=== PATIENT | female | born 1965 | race Caucasian/White ===

== ENCOUNTER 2023-07-29 11:39 | Day surgery (SDC) | payer OTHER ==
[2023-07-09 14:53] VITALS: BMI 25.7
== END 2023-07-29 12:45 | disposition home or self-care (01) ==
LOC: MERGE 11:39 → FASU-ENDO 11:39
PROVIDERS: ATTEND Internal Medicine Gastroenterology
PROC: 0DJ08ZZ Inspection of Upper Intestinal Tract, Via Natural or Artificial Opening Endoscopic (ICD-10-PCS; principal; 2023-07-29)
DX: Z53.09 Procedure and treatment not carried out because of other contraindication (principal); R10.13 Epigastric pain

== ENCOUNTER 2023-08-15 15:01 | Inpatient (IN) | payer OTHER ==
[2023-08-15 15:32] VITALS: BMI 27.4
[2023-08-15] MEDS: ALBUTEROL SO4 2.5/IPRATROPIUM 0.5 INH SOL 3 ML VIAL.NEB. NEB SCH (15:33)
[2023-08-15] MEDS ORDERED: ACETAMINOPHEN INJECTION 100 ML IVPB ONE (15:34)
[2023-08-15] MEDS ORDERED: methylPREDNISolone NA SUCC 125 MG/2 ML VIAL ONE (15:35)
[2023-08-15] MEDS: ACETAMINOPHEN 1000 MG/100 ML BAG IVPB ONE (15:43)
[2023-08-15] MEDS: SODIUM CHLORIDE 0.9% 500 ML INFUS.BAG IV ONE ×3 (15:43→21:26)
[2023-08-15] MEDS: methylPREDNISolone NA SUCC 125 MG/2 ML VIAL IVPB ONE (15:43)
[2023-08-15 16:29] LABS: VENOUS BASE EXCESS -2.7 mmol/L (-2-2); VENOUS O2 SATURATION 38.4 % (70-80); VENOUS PCO2 59.1 mmHg (38-52); VENOUS PH 7.258 (7.310-7.410)
[2023-08-15 16:33] LABS: INR 1.04 (0.83-1.09); PROTHROMBIN TIME (PATIENT) 12.1 SEC (9.7-13.0)
[2023-08-15 16:35] LABS: ACTIVATED PTT 45.4 SECONDS (25.2-36.5)
[2023-08-15 16:39] LABS: HEMATOCRIT 51.7 % (32.4-45.2); HEMOGLOBIN 16.4 GM/dL (10.7-15.3); MCH 27.3 pg (25.7-33.7); MCHC 31.8 g/dl (32.0-36.0); MEAN CELL VOLUME 85.8 fl (80-96); RBC 6.02 M/mm3 (3.60-5.2); RDW 14.5 % (11.6-15.6)
[2023-08-15 16:48] LABS: CHLORIDE 95 mmol/L (98-107); SODIUM 134 mmol/L (136-145)
[2023-08-15 16:50] LABS: ALBUMIN 2.2 g/dl (3.4-5.0); ANION GAP 14 mmol/L (4-13); CALCIUM 8.9 mg/dL (8.5-10.1); CO2 26 mmol/L (21-32); GLUCOSE,RANDOM 168 mg/dL (74-106); MAGNESIUM 1.6 mg/dL (1.8-2.4)
[2023-08-15 16:53] LABS: CREATININE 1.6 mg/dL (0.55-1.3); SGPT/ALT 43 U/L (13-61)
[2023-08-15 16:54] LABS: SGOT/AST 70 U/L (15-37)
[2023-08-15 16:55] LABS: BILIRUBIN,TOTAL 1.3 mg/dL (0.2-1); TOT PROT 7.3 g/dl (6.4-8.2)
[2023-08-15 16:56] LABS: ALK PHOS 291 U/L (45-117)
[2023-08-15 17:03] LABS: BLOOD UREA NITROGEN 2.6 mg/dL (7-18)
[2023-08-15 17:03] LABS: LACTIC ACID 6.8 mmol/L (0.4-2.0)
[2023-08-15 17:29] LABS: ANISOCYTOSIS 0; MACROCYTOSIS 0
[2023-08-15 17:31] LABS: WHITE BLOOD COUNT 20.8 K/mm3 (4.0-10.0)
[2023-08-15] MEDS ORDERED: KCL 10 MEQ IVPB 10 MEQ/100 ML INFUS.BAG IVPB ONE ×3 (18:43→21:53)
[2023-08-15] MEDS ORDERED: PIPERACILLIN/TAZOB 4.5 GM 4.5 GM/100 ML BAG IVPB ONE (18:44)
[2023-08-15 18:45] LABS: VENOUS BASE EXCESS -7.7 mmol/L (-2-2); VENOUS O2 SATURATION 52.8 % (70-80); VENOUS PCO2 54.8 mmHg (38-52); VENOUS PH 7.201 (7.310-7.410)
[2023-08-15] MEDS: PIPERACILLIN/TAZOB 4.5 GM 4.5 GM in DEXTROSE 5%-WATER 100 ML IVPB ONE (18:51)
[2023-08-15] MEDS: KCL 10 MEQ IVPB 10 MEQ/100 ML INFUS.BAG IVPB SCH (18:51)
[2023-08-15] MEDS ORDERED: VANCOMYCIN 1 GRAM (PRE-DOCKED) 1,000 MG/250 ML BAG IVPB ONE (19:20)
[2023-08-15] MEDS ORDERED: MAGNESIUM SULFATE IN WATER 2 GM/50 ML IVPB IVPB ONE (19:49)
[2023-08-15] MEDS: MAGNESIUM SULFATE IN WATER 2 GM/50 ML IVPB IVPB ONE (20:00)
[2023-08-15] MEDS: VANCOMYCIN 1,000 MG in DEXTROSE 5%-WATER - 250 ML IVPB ONE (20:14)
[2023-08-15] MEDS ORDERED: ONDANSETRON 4 MG/2 ML VIAL ONE (20:14)
[2023-08-15] MEDS: ONDANSETRON 4 MG/2 ML VIAL IVPUSH ONE (20:16)
[2023-08-15] MEDS ORDERED: ACETAMINOPHEN 1000 MG/100 ML BAG IVPB PRN (22:05)
[2023-08-15] MEDS ORDERED: ALBUTEROL SO4 0.5 % INH SOLN 2.5 MG/0.5 ML VIAL.NEB. NEB PRN (22:17)
[2023-08-15] MEDS ORDERED: HEPARIN NA (PORCINE) 5,000 UNITS/ML 1ML VIAL ONE (22:39)
[2023-08-15] MEDS: LACTATED RINGERS SOLUTION 1,000 ML/1,000 ML INFUS.BAG IV SCH (22:53)
[2023-08-15] MEDS: HEPARIN NA (PORCINE) 5,000 UNITS/ML 1ML VIAL SQ SCH (22:53)
[2023-08-15 23:57] LABS: METHADONE, UR NEGATIVE (NEGATIVE); OPIATES, URI NEGATIVE (NEGATIVE); PHENCYCLIDINE,URINE NEGATIVE (NEGATIVE); URINE BARBITURATES NEGATIVE (NEGATIVE); URINE BENZODIAZEPINES NEGATIVE (NEGATIVE)
[2023-08-15 23:58] LABS: COCAINE, UR NEGATIVE (NEGATIVE)
[2023-08-16] LABS: URINE AMPHETAMINES NEGATIVE (NEGATIVE)
[2023-08-16] MEDS: LACTATED RINGERS SOLUTION 1,000 ML/1,000 ML INFUS.BAG IV STA ×4 (00:25→05:16)
[2023-08-16] MEDS: PIPERACILLIN/TAZOB 2.25 GM 2.25 GM in DEXTROSE 5%-WATER - 50 ML IVPB SCH (02:26)
[2023-08-16 04:45] LABS: LACTIC ACID 8.9 mmol/L (0.4-2.0)
[2023-08-16] MEDS: ALBUTEROL SO4 2.5/IPRATROPIUM 0.5 INH SOL 3 ML VIAL.NEB. NEB SCH (07:15)
[2023-08-16 07:24] LABS: INR 1.88 (0.83-1.09); PROTHROMBIN TIME (PATIENT) 21.7 SEC (9.7-13.0)
[2023-08-16 07:25] LABS: ACTIVATED PTT 23.3 SECONDS (25.2-36.5)
[2023-08-16 07:34] LABS: HEMATOCRIT 36.7 % (32.4-45.2); HEMOGLOBIN 11.8 GM/dL (10.7-15.3); MCH 27.9 pg (25.7-33.7); MCHC 32.3 g/dl (32.0-36.0); MEAN CELL VOLUME 86.5 fl (80-96); MEAN PLT VOLUME 10.5 fl (7.5-11.1); PLATELET COUNT 111 10^3/uL (134-434); RBC 4.24 M/mm3 (3.60-5.2); RDW 14.2 % (11.6-15.6); WHITE BLOOD COUNT 6.1 K/mm3 (4.0-10.0)
[2023-08-16 07:49] LABS: CHLORIDE 108 mmol/L (98-107); POTASSIUM 3.6 mmol/L (3.5-5.1); SODIUM 139 mmol/L (136-145)
[2023-08-16 07:51] LABS: CALCIUM 7.6 mg/dL (8.5-10.1)
[2023-08-16 07:51] LABS: LACTIC ACID 8.2 mmol/L (0.4-2.0)
[2023-08-16 07:52] LABS: ANION GAP 11 mmol/L (4-13); CO2 20 mmol/L (21-32); GLUCOSE,RANDOM 125 mg/dL (74-106); MAGNESIUM 1.3 mg/dL (1.8-2.4)
[2023-08-16 07:55] LABS: CREATININE 0.9 mg/dL (0.55-1.3); PHOSPHOROUS 2.2 mg/dL (2.5-4.9)
[2023-08-16 07:56] LABS: BLOOD UREA NITROGEN 2.3 mg/dL (7-18)
[2023-08-16 08:51] LABS: ANISOCYTOSIS 2+; MACROCYTOSIS 0
[2023-08-16] MEDS: methylPREDNISolone NA SUCC 40 MG/1 ML VIAL IVPUSH SCH (09:35)
[2023-08-16] MEDS: MAGNESIUM SULFATE IN WATER 2 GM/50 ML IVPB IVPB ONE (09:35)
[2023-08-16] MEDS: MUPIROCIN 2% TOPICAL OINTMENT FOR DECOLONIZATION NS SCH (09:35)
[2023-08-16] MEDS: PANTOPRAZOLE SODIUM 40 MG VIAL IVPUSH SCH (09:36)
[2023-08-16] MEDS: PIPERACILLIN/TAZOB 4.5 GM 4.5 GM in DEXTROSE 5%-WATER 100 ML IVPB SCH ×2 (09:37→17:04)
[2023-08-16] MEDS ORDERED: methylPREDNISolone NA SUCC 40 MG/1 ML VIAL IVPUSH SCH (10:00)
[2023-08-16] MEDS: POTASSIUM PHOSPHATE 30 MM in DEXTROSE 5%-WATER - 500 ML IVPB ONE (10:48)
[2023-08-16 12:56] LABS: LACTIC ACID 6.4 mmol/L (0.4-2.0)
[2023-08-16 13:24] LABS: URINE APPEARANCE CLEAR; URINE COLOR YELLOW
[2023-08-16 13:25] LABS: URINE BILIRUBIN NEGATIVE (NEGATIVE); URINE GLUCOSE (UA) NEGATIVE (NEGATIVE); URINE KETONE NEGATIVE (NEGATIVE); URINE LEUK ESTERASE NEGATIVE (NEGATIVE); URINE NITRITE NEGATIVE (NEGATIVE); URINE PROTEIN NEGATIVE (NEGATIVE); URINE RBC 31.8 /uL (0-23.9); URINE UROBILINOGEN 0.2 mg/dL (0.2-1.0)
[2023-08-16 13:26] LABS: EPI CELLS 14.1 /uL (0-25.1); HYALINE CASTS 0.59 /uL (0-3.1); URINE BACTERIA 161.5 /uL (0-1359); URINE WBC 69.7 /uL (0-25.8)
[2023-08-16] MEDS ORDERED: PIPERACILLIN/TAZOB 4.5 GM 4.5 GM in DEXTROSE 5%-WATER 100 ML IVPB SCH (18:00)
[2023-08-16] MEDS: CHLORHEXIDINE GLUCONATE 4% CLEANSER FOR DECOLONIZATION TP SCH (21:43)
[2023-08-17] MEDS: DEXMEDETOMIDINE PREMIX 400 MCG/100 ML BAG IVPB SCH (00:04)
[2023-08-17] MEDS: PIPERACILLIN/TAZOB 2.25 GM 2.25 GM in DEXTROSE 5%-WATER - 50 ML IVPB SCH (05:10)
[2023-08-17 07:29] LABS: POTASSIUM 3.8 mmol/L (3.5-5.1)
[2023-08-17 07:35] LABS: CALCIUM 7.2 mg/dL (8.5-10.1)
[2023-08-17 07:36] LABS: MAGNESIUM 1.9 mg/dL (1.8-2.4)
[2023-08-17 07:39] LABS: CREATININE 0.6 mg/dL (0.55-1.3); PHOSPHOROUS 2.3 mg/dL (2.5-4.9)
[2023-08-17 07:40] LABS: BILIRUBIN,TOTAL 0.7 mg/dL (0.2-1)
[2023-08-17 07:46] LABS: ALBUMIN 1.4 g/dl (3.4-5.0); TOT PROT 4.6 g/dl (6.4-8.2)
[2023-08-17 07:50] LABS: BASO % 0.1 % (0-2.0); HEMATOCRIT 32.9 % (32.4-45.2); HEMOGLOBIN 10.8 GM/dL (10.7-15.3); LYMPH % 7.7 % (8-40); MCH 27.7 pg (25.7-33.7); MCHC 32.8 g/dl (32.0-36.0); MEAN CELL VOLUME 84.4 fl (80-96); MEAN PLT VOLUME 11.1 fl (7.5-11.1); MONO % 4.1 % (3.8-10.2); NEUT % 88.1 % (42.8-82.8); PLATELET COUNT 103 10^3/uL (134-434); RDW 14.5 % (11.6-15.6); WHITE BLOOD COUNT 8.4 K/mm3 (4.0-10.0)
[2023-08-17] MEDS: ADENOSINE 6 MG/2 ML VIAL IVPUSH ONE ×3 (08:15→10:30)
[2023-08-17] MEDS: METOPROLOL TARTRATE 5 MG/5 ML VIAL IVPUSH ONE (09:00)
[2023-08-17] MEDS: ONDANSETRON 4 MG/2 ML VIAL IVPUSH PRN (09:10)
[2023-08-17] MEDS: TRIMETHOBENZAMIDE HCL 200MG/2ML INJ IM ONE (10:30)
[2023-08-17] MEDS: HYDROmorphone HCl 2 MG/ML VIAL IVPUSH ONE (10:30)
[2023-08-17] MEDS: METOPROLOL TARTRATE 5 MG/5 ML VIAL IVPB SCH (12:59)
[2023-08-17] MEDS: TRIMETHOBENZAMIDE HCL 200MG/2ML INJ IM PRN (16:56)
[2023-08-17] MEDS: SODIUM PHOSPHATE - 30 MM in SODIUM CHLORIDE 500 ML IVPB ONE (17:38)
[2023-08-18] MEDS ORDERED: traMADol HCL 50 MG TABLET PO PRN (10:13)
[2023-08-18] MEDS: PANTOPRAZOLE 40 MG TABLET PO SCH (21:01)
[2023-08-18] MEDS: ACETAMINOPHEN 1000 MG/100 ML BAG IVPB PRN (22:16)
[2023-08-19] MEDS: LACTATED RINGERS SOLUTION 1,000 ML/1,000 ML INFUS.BAG IV SCH (05:08)
[2023-08-19] MEDS: ALBUTEROL SO4 2.5/IPRATROPIUM 0.5 INH SOL 3 ML VIAL.NEB. NEB SCH (07:30)
[2023-08-19 08:52] LABS: CHLORIDE 97 mmol/L (98-107); SODIUM 137 mmol/L (136-145)
[2023-08-19 08:57] LABS: CALCIUM 8.1 mg/dL (8.5-10.1)
[2023-08-19 08:58] LABS: CO2 25 mmol/L (21-32); GLUCOSE,RANDOM 56 mg/dL (74-106)
[2023-08-19 09:00] LABS: SGPT/ALT 25 U/L (13-61)
[2023-08-19 09:01] LABS: CREATININE 0.4 mg/dL (0.55-1.3); PHOSPHOROUS 1.3 mg/dL (2.5-4.9); SGOT/AST 39 U/L (15-37)
[2023-08-19 09:02] LABS: BILIRUBIN,TOTAL 0.9 mg/dL (0.2-1); TOT PROT 6.2 g/dl (6.4-8.2)
[2023-08-19 09:16] LABS: ALBUMIN 1.9 g/dl (3.4-5.0); ALK PHOS 265 U/L (45-117); ANION GAP 15 mmol/L (4-13); BLOOD UREA NITROGEN 1.2 mg/dL (7-18); POTASSIUM 2.8 mmol/L (3.5-5.1)
[2023-08-19] MEDS: KCL 10 MEQ IVPB 10 MEQ/100 ML INFUS.BAG IVPB SCH (10:41)
[2023-08-19] MEDS: POLYETHYLENE GLYCOL (HEALTHYLAX) 3350 17 GM PACKET PO SCH (10:43)
[2023-08-19] MEDS: HEPARIN NA (PORCINE) 5,000 UNITS/ML 1ML VIAL SQ SCH (10:43)
[2023-08-19] MEDS: DULoxetine HCL 30 MG CAPSULE.DR PO SCH (10:44)
[2023-08-19] MEDS ORDERED: METOPROLOL TARTRATE 5 MG/5 ML VIAL IVPUSH PRN (12:04)
[2023-08-19] MEDS: POTASSIUM CHLORIDE ORAL LIQUID 20 MEQ/15 ML PO ONE (12:51)
[2023-08-19] MEDS: busPIRone HCL 10 MG TABLET (FP) PO SCH (15:40)
[2023-08-19] MEDS: POTASSIUM PHOSPHATE 30 MM in SODIUM CHLORIDE 500 ML IVPB ONE (15:57)
[2023-08-19] MEDS ORDERED: METOPROLOL TARTRATE 5 MG/5 ML VIAL IVPUSH SCH (16:15)
[2023-08-19] MEDS: METOPROLOL TARTRATE 5 MG/5 ML VIAL IVPUSH SCH (18:07)
[2023-08-19] MEDS: DEXTROSE 50%-WATER 25 GM/50 ML DISP.SYRIN IVPUSH ONE (19:34)
[2023-08-19] MEDS: KCL 10 MEQ IVPB 10 MEQ/100 ML INFUS.BAG IVPB ONE (19:34)
[2023-08-19 21:00] LABS: CHLORIDE 101 mmol/L (98-107); SODIUM 135 mmol/L (136-145)
[2023-08-19 21:01] LABS: CALCIUM 7.5 mg/dL (8.5-10.1); CO2 19 mmol/L (21-32); GLUCOSE,RANDOM 170 mg/dL (74-106); MAGNESIUM 1.3 mg/dL (1.8-2.4)
[2023-08-19 21:02] LABS: BLOOD UREA NITROGEN < 1.0 mg/dL (7-18)
[2023-08-19 21:05] LABS: CREATININE 0.4 mg/dL (0.55-1.3)
[2023-08-19 21:11] LABS: ANION GAP 15 mmol/L (4-13); POTASSIUM 2.9 mmol/L (3.5-5.1)
[2023-08-19] MEDS ORDERED: LORazepam 2 MG TABLET PO SCH (22:00)
[2023-08-19] MEDS ORDERED: LORazepam 0.5 MG TABLET PO SCH (22:22)
[2023-08-19] MEDS: LORazepam 0.5 MG TABLET PO ONE (22:49)
[2023-08-20 07:43] LABS: MAGNESIUM 1.3 mg/dL (1.8-2.4)
[2023-08-20 08:00] LABS: CHLORIDE 102 mmol/L (98-107); POTASSIUM 3.4 mmol/L (3.5-5.1); SODIUM 137 mmol/L (136-145)
[2023-08-20 08:08] LABS: CALCIUM 7.3 mg/dL (8.5-10.1)
[2023-08-20 08:09] LABS: ANION GAP 11 mmol/L (4-13); BLOOD UREA NITROGEN < 1.0 mg/dL (7-18); CO2 24 mmol/L (21-32); GLUCOSE,RANDOM 89 mg/dL (74-106)
[2023-08-20 08:10] LABS: ALBUMIN 1.6 g/dl (3.4-5.0); BLOOD UREA NITROGEN < 1.0 mg/dL (7-18); CALCIUM 7.2 mg/dL (8.5-10.1); CO2 22 mmol/L (21-32)
[2023-08-20 08:11] LABS: GLUCOSE,RANDOM 95 mg/dL (74-106); MAGNESIUM 1.6 mg/dL (1.8-2.4)
[2023-08-20 08:12] LABS: CREATININE 0.4 mg/dL (0.55-1.3)
[2023-08-20 08:13] LABS: PHOSPHOROUS 1.6 mg/dL (2.5-4.9); SGPT/ALT 16 U/L (13-61)
[2023-08-20 08:14] LABS: CREATININE 0.3 mg/dL (0.55-1.3); SGOT/AST 23 U/L (15-37)
[2023-08-20 08:15] LABS: BILIRUBIN,TOTAL 0.9 mg/dL (0.2-1); TOT PROT 5.1 g/dl (6.4-8.2)
[2023-08-20 08:24] LABS: ALK PHOS 198 U/L (45-117); ANION GAP 12 mmol/L (4-13); POTASSIUM 2.5 mmol/L (3.5-5.1)
[2023-08-20 10:28] LABS: CHLORIDE 102 mmol/L (98-107); SODIUM 139 mmol/L (136-145)
[2023-08-20 10:30] LABS: ALBUMIN 1.7 g/dl (3.4-5.0); CALCIUM 7.4 mg/dL (8.5-10.1)
[2023-08-20 10:31] LABS: BLOOD UREA NITROGEN < 1.0 mg/dL (7-18); CO2 22 mmol/L (21-32); GLUCOSE,RANDOM 97 mg/dL (74-106); MAGNESIUM 1.6 mg/dL (1.8-2.4)
[2023-08-20 10:33] LABS: CREATININE 0.4 mg/dL (0.55-1.3)
[2023-08-20] MEDS: LORazepam 0.5 MG TABLET PO SCH (10:33)
[2023-08-20 10:34] LABS: PHOSPHOROUS 1.4 mg/dL (2.5-4.9); SGOT/AST 25 U/L (15-37)
[2023-08-20] MEDS: METOPROLOL TARTRATE 25 MG TABLET (FP) PO SCH (10:34)
[2023-08-20 10:35] LABS: BILIRUBIN,TOTAL 0.9 mg/dL (0.2-1); TOT PROT 5.3 g/dl (6.4-8.2)
[2023-08-20 10:36] LABS: ALK PHOS 210 U/L (45-117)
[2023-08-20 10:40] LABS: SGPT/ALT 17 U/L (13-61)
[2023-08-20 10:45] LABS: ANION GAP 14 mmol/L (4-13); POTASSIUM 2.6 mmol/L (3.5-5.1)
[2023-08-20] MEDS ORDERED: KCL 20 MEQ PREMIX BAG 20 MEQ/100 ML INFUS.BAG IVPB SCH (13:00)
[2023-08-20] MEDS: KCL 10 MEQ IVPB 10 MEQ/100 ML INFUS.BAG IVPB SCH ×2 (13:51)
[2023-08-20] MEDS ORDERED: MAGNESIUM SULF 50% (8.12 MEQ/2 ML-1 GM VIAL) ONE (15:56)
[2023-08-20] MEDS: MAGNESIUM SULF 50% (8.12 MEQ/2 ML-1 GM VIAL) IVPB ONE (15:58)
[2023-08-21 08:34] LABS: BASO % 0.2 % (0-2.0); EOS % 1.2 % (0-4.5); HEMATOCRIT 31.7 % (32.4-45.2); LYMPH % 12.4 % (8-40); MCH 28.2 pg (25.7-33.7); MCHC 34.7 g/dl (32.0-36.0); MEAN CELL VOLUME 81.3 fl (80-96); MEAN PLT VOLUME 9.7 fl (7.5-11.1); MONO % 7.8 % (3.8-10.2); NEUT % 78.4 % (42.8-82.8); PLATELET COUNT 123 10^3/uL (134-434); RDW 14.5 % (11.6-15.6); WHITE BLOOD COUNT 7.9 K/mm3 (4.0-10.0)
[2023-08-21 08:48] LABS: CHLORIDE 100 mmol/L (98-107); SODIUM 136 mmol/L (136-145)
[2023-08-21 09:06] LABS: CALCIUM 7.3 mg/dL (8.5-10.1); CO2 25 mmol/L (21-32)
[2023-08-21 09:08] LABS: ALBUMIN 1.7 g/dl (3.4-5.0); BLOOD UREA NITROGEN < 1.0 mg/dL (7-18); GLUCOSE,RANDOM 84 mg/dL (74-106)
[2023-08-21 09:10] LABS: SGPT/ALT 15 U/L (13-61)
[2023-08-21 09:11] LABS: CREATININE 0.3 mg/dL (0.55-1.3); SGOT/AST 29 U/L (15-37); TOT PROT 5.2 g/dl (6.4-8.2)
[2023-08-21 09:13] LABS: ALK PHOS 189 U/L (45-117); BILIRUBIN,TOTAL 0.8 mg/dL (0.2-1)
[2023-08-21 09:28] LABS: ANION GAP 11 mmol/L (4-13); POTASSIUM 2.5 mmol/L (3.5-5.1)
[2023-08-21] MEDS: KCL 10 MEQ IVPB 10 MEQ/100 ML INFUS.BAG IVPB SCH ×3 (11:34→22:39)
[2023-08-21] MEDS: AMINO ACIDS 4.25%/D5W 1,000 ML IV SCH (17:07)
[2023-08-21] MEDS: ACETAMINOPHEN 1000 MG/100 ML BAG IVPB ONE (18:27)
[2023-08-21 20:50] LABS: CHLORIDE 100 mmol/L (98-107); SODIUM 135 mmol/L (136-145)
[2023-08-21 20:52] LABS: ALBUMIN 1.7 g/dl (3.4-5.0); CALCIUM 7.6 mg/dL (8.5-10.1); CO2 23 mmol/L (21-32); GLUCOSE,RANDOM 92 mg/dL (74-106)
[2023-08-21 20:55] LABS: CREATININE 0.3 mg/dL (0.55-1.3); SGOT/AST 30 U/L (15-37); SGPT/ALT 15 U/L (13-61)
[2023-08-21 20:57] LABS: BILIRUBIN,TOTAL 0.8 mg/dL (0.2-1); TOT PROT 5.2 g/dl (6.4-8.2)
[2023-08-21 20:58] LABS: ALK PHOS 176 U/L (45-117)
[2023-08-21 21:01] LABS: ANION GAP 12 mmol/L (4-13); BLOOD UREA NITROGEN 1.2 mg/dL (7-18); POTASSIUM 2.9 mmol/L (3.5-5.1)
[2023-08-21] MEDS: MIRTAZAPINE 15 MG TABLET (FP) PO SCH (22:40)
[2023-08-22 08:00] LABS: CHLORIDE 100 mmol/L (98-107); SODIUM 136 mmol/L (136-145)
[2023-08-22 08:01] LABS: CALCIUM 7.5 mg/dL (8.5-10.1); CO2 29 mmol/L (21-32)
[2023-08-22 08:02] LABS: GLUCOSE,RANDOM 103 mg/dL (74-106)
[2023-08-22 08:04] LABS: CREATININE 0.3 mg/dL (0.55-1.3)
[2023-08-22 08:05] LABS: ANION GAP 7 mmol/L (4-13); BLOOD UREA NITROGEN 1.4 mg/dL (7-18); POTASSIUM 2.8 mmol/L (3.5-5.1)
[2023-08-22] MEDS: KCL 10 MEQ IVPB 10 MEQ/100 ML INFUS.BAG IVPB SCH (10:44)
[2023-08-22] MEDS: DULoxetine HCL 20 MG CAPSULE.DR PO SCH (10:44)
[2023-08-22] MEDS ORDERED: SODIUM CHLORIDE 1,000 ML IV SCH (14:00)
[2023-08-22] MEDS: POTASSIUM CHLORIDE 40 MEQ in AMINO ACIDS 4.25%/D5W 1,000 ML IV SCH (15:29)
[2023-08-22] MEDS: SUCRALFATE 1 GM/10 ML UNIT DOSE CUPS PO SCH (17:36)
[2023-08-22] MEDS: POTASSIUM CHLORIDE TABS 10 MEQ TABLET.ER (FP) PO SCH (22:02)
[2023-08-23 08:21] LABS: HEMATOCRIT 33.3 % (32.4-45.2); HEMOGLOBIN 11.4 GM/dL (10.7-15.3); MCHC 34.2 g/dl (32.0-36.0); MEAN CELL VOLUME 81.7 fl (80-96); MEAN PLT VOLUME 10.1 fl (7.5-11.1); PLATELET COUNT 148 10^3/uL (134-434); RBC 4.07 M/mm3 (3.60-5.2); RDW 14.7 % (11.6-15.6); WHITE BLOOD COUNT 7.3 K/mm3 (4.0-10.0)
[2023-08-23 08:29] LABS: CHLORIDE 98 mmol/L (98-107); POTASSIUM 3.3 mmol/L (3.5-5.1); SODIUM 139 mmol/L (136-145)
[2023-08-23 08:40] LABS: CALCIUM 7.7 mg/dL (8.5-10.1)
[2023-08-23 08:42] LABS: ANION GAP 7 mmol/L (4-13); CO2 33 mmol/L (21-32); GLUCOSE,RANDOM 110 mg/dL (74-106); MAGNESIUM 1.5 mg/dL (1.8-2.4)
[2023-08-23 08:45] LABS: CREATININE 0.3 mg/dL (0.55-1.3)
[2023-08-23 08:46] LABS: BLOOD UREA NITROGEN 2.1 mg/dL (7-18)
[2023-08-23] MEDS: MAGNESIUM SULF 50% (8.12 MEQ/2 ML-1 GM VIAL) IVPB ONE (12:32)
[2023-08-24] MEDS: ACETAMINOPHEN 1000 MG/100 ML BAG IVPB ONE (05:48)
[2023-08-24] MEDS: METOCLOPRAMIDE HCL INJECTION 10 MG/2 ML VIAL IVPUSH PRN (10:31)
[2023-08-24 14:40] VITALS: BP 131/78; PULSE 99; RESP 22; TEMP 98.4
[2023-08-24] MEDS: ALBUTEROL SO4 0.5 % INH SOLN 2.5 MG/0.5 ML VIAL.NEB. NEB PRN (15:48)
== END 2023-08-24 18:36 | DRG 872 ==
LOC: JER 15:01 → JERBED 21:40 → JICU 08-16 00:24 → J4W 08-18 21:47
PROVIDERS: ADMIT Internal Medicine Pulmonary Disease; ATTEND Family Medicine
PROC: 05HF33Z Insertion of Infusion Device into Left Cephalic Vein, Percutaneous Approach (ICD-10-PCS; principal; 2023-08-16)
PROC: B54NZZA Ultrasonography of Left Upper Extremity Veins, Guidance (ICD-10-PCS; 2023-08-16)
DX: A41.9 Sepsis, unspecified organism (principal); N17.9 Acute kidney failure, unspecified; E87.20 Acidosis, unspecified; E46 Unspecified protein-calorie malnutrition; J98.11 Atelectasis; I47.10 Supraventricular tachycardia, unspecified; K56.609 Unspecified intestinal obstruction, unspecified as to partial versus complete obstruction; K50.90 Crohn's disease, unspecified, without complications; J44.9 Chronic obstructive pulmonary disease, unspecified; F14.10 Cocaine abuse, uncomplicated; D69.6 Thrombocytopenia, unspecified; F41.9 Anxiety disorder, unspecified; F32.A Depression, unspecified; R13.10 Dysphagia, unspecified; E87.6 Hypokalemia; E83.42 Hypomagnesemia; Z68.27 Body mass index [BMI] 27.0-27.9, adult
CPT/HCPCS: 0241U-QW; 36415; 71045-TC-FY; 74018-TC-FY; 74019-TC-FY; 74176-TC; 74177-TC; 80048; 80053; 80307; 81003; 82436; 82570; 82803; 82962; 83036; 83605; 83690; 83735; 83880; 84100; 84133; 84156; 84300; 84439; 84443; 84484; 85025; 85027; 85610; 85730; 86850; 86900; 86901; 87040; 87086; 93005; 93010; 93306-TC; 94010; 94640; 97116-GP; 97162-GP; 99291; J0131; J1644; Q9967

== ENCOUNTER 2023-08-27 11:32 | Inpatient (IN) | payer OTHER ==
[2023-08-27 13:01] LABS: HEMATOCRIT 35.9 % (32.4-45.2); MCH 27.2 pg (25.7-33.7); MCHC 33.4 g/dl (32.0-36.0); MEAN CELL VOLUME 81.6 fl (80-96); MEAN PLT VOLUME 9.2 fl (7.5-11.1); PLATELET COUNT 408 10^3/uL (134-434); RDW 15.9 % (11.6-15.6); WHITE BLOOD COUNT 25.2 K/mm3 (4.0-10.0)
[2023-08-27 13:08] LABS: INR 1.46 (0.83-1.09); PROTHROMBIN TIME (PATIENT) 16.9 SEC (9.7-13.0)
[2023-08-27 13:11] LABS: ACTIVATED PTT 27.2 SECONDS (25.2-36.5)
[2023-08-27 13:27] LABS: ANISOCYTOSIS 0; MACROCYTOSIS 0; POTASSIUM 3.6 mmol/L (3.5-5.1)
[2023-08-27 13:29] LABS: CALCIUM 8.1 mg/dL (8.5-10.1)
[2023-08-27 13:30] LABS: ALBUMIN 1.6 g/dl (3.4-5.0); BLOOD UREA NITROGEN 5.6 mg/dL (7-18); MAGNESIUM 1.7 mg/dL (1.8-2.4)
[2023-08-27 13:33] LABS: CREATININE 0.4 mg/dL (0.55-1.3)
[2023-08-27 13:35] LABS: BILIRUBIN,TOTAL 1.5 mg/dL (0.2-1); TOT PROT 6.5 g/dl (6.4-8.2)
[2023-08-27] MEDS ORDERED: PIPERACILLIN/TAZOB 4.5 GM 4.5 GM/100 ML BAG IVPB ONE (18:28)
[2023-08-27] MEDS: PIPERACILLIN/TAZOB 4.5 GM 4.5 GM in DEXTROSE 5%-WATER 100 ML IVPB ONE ×2 (18:42→20:06)
[2023-08-27 18:52] LABS: URINE APPEARANCE CLEAR; URINE BILIRUBIN SMALL (NEGATIVE); URINE COLOR ORANGE; URINE GLUCOSE (UA) NEGATIVE (NEGATIVE)
[2023-08-27 18:53] LABS: PH,URINE 6.5 (5.0-8.0); URINE KETONE 15 mg/dl (NEGATIVE); URINE LEUK ESTERASE TRACE (NEGATIVE); URINE NITRITE POSITIVE (NEGATIVE); URINE PROTEIN 30 (NEGATIVE)
[2023-08-27 18:54] LABS: EPI CELLS 13.6 /uL (0-25.1); HYALINE CASTS 1.57 /uL (0-3.1); URINE BACTERIA 2.9 /uL (0-1359); URINE RBC 69.8 /uL (0-23.9); URINE WBC 27.6 /uL (0-25.8)
[2023-08-27] MEDS: VANCOMYCIN 1,000 MG in DEXTROSE 5%-WATER - 250 ML IVPB ONE ×2 (19:09→22:14)
[2023-08-27] MEDS ORDERED: ONDANSETRON 4 MG/2 ML VIAL ONE (20:31)
[2023-08-27] MEDS ORDERED: VANCOMYCIN 1 GRAM (PRE-DOCKED) 1,000 MG/250 ML BAG IVPB ONE (22:06)
[2023-08-28] MEDS ORDERED: ACETAMINOPHEN 325 MG TABLET (FP) ONE ×2 (00:20→13:41)
[2023-08-28] MEDS: ACETAMINOPHEN 325 MG TABLET (FP) PO PRN (00:22)
[2023-08-28] MEDS ORDERED: SUCRALFATE 1 GM TABLET (FP) ONE (07:06)
[2023-08-28] MEDS ORDERED: PIPERACILLIN/TAZOB 4.5 GM 4.5 GM/100 ML BAG IVPB ONE (07:07)
[2023-08-28] MEDS: PIPERACILLIN/TAZOB 4.5 GM 4.5 GM in DEXTROSE 5%-WATER 100 ML IVPB ONE (07:16)
[2023-08-28] MEDS: ALBUTEROL SO4 2.5/IPRATROPIUM 0.5 INH SOL 3 ML VIAL.NEB. NEB SCH (08:00)
[2023-08-28 08:01] LABS: HEMATOCRIT 32.6 % (32.4-45.2); HEMOGLOBIN 10.7 GM/dL (10.7-15.3); MCH 27.1 pg (25.7-33.7); MCHC 32.8 g/dl (32.0-36.0); MEAN CELL VOLUME 82.7 fl (80-96); PLATELET COUNT 357 10^3/uL (134-434); RBC 3.94 M/mm3 (3.60-5.2); RDW 16.2 % (11.6-15.6); WHITE BLOOD COUNT 19.2 K/mm3 (4.0-10.0)
[2023-08-28 08:20] LABS: POTASSIUM 3.5 mmol/L (3.5-5.1)
[2023-08-28 08:23] LABS: ALBUMIN 1.4 g/dl (3.4-5.0); BLOOD UREA NITROGEN 4.7 mg/dL (7-18); MAGNESIUM 1.5 mg/dL (1.8-2.4)
[2023-08-28 08:26] LABS: CREATININE 0.4 mg/dL (0.55-1.3); PHOSPHOROUS 2.2 mg/dL (2.5-4.9)
[2023-08-28 08:27] LABS: BILIRUBIN,TOTAL 1.7 mg/dL (0.2-1); TOT PROT 5.9 g/dl (6.4-8.2)
[2023-08-28 08:42] LABS: ANISOCYTOSIS 0; MACROCYTOSIS 0
[2023-08-28] MEDS ORDERED: LORazepam 0.5 MG TABLET ONE (09:46)
[2023-08-28] MEDS ORDERED: MAGNESIUM SULFATE IN WATER 2 GM/50 ML IVPB IVPB ONE (09:48)
[2023-08-28] MEDS ORDERED: DULoxetine HCL 30 MG CAPSULE.DR PO ONE (09:51)
[2023-08-28] MEDS ORDERED: PANTOPRAZOLE 40 MG TABLET PO ONE (09:51)
[2023-08-28] MEDS ORDERED: METOPROLOL TARTRATE 25 MG TABLET (FP) ONE ×2 (09:51→10:10)
[2023-08-28] MEDS ORDERED: VANCOMYCIN 1 GRAM (PRE-DOCKED) 1,000 MG/250 ML BAG IVPB ONE (09:51)
[2023-08-28] MEDS: VANCOMYCIN/WATER FOR INJ (PEG) 1,000 MG/200 ML BAG IVPB SCH (09:55)
[2023-08-28] MEDS: MAGNESIUM 2GM/50ML STERILE WATER IVPB IVPB ONE (09:56)
[2023-08-28] MEDS: PANTOPRAZOLE 40 MG TABLET PO SCH (09:56)
[2023-08-28] MEDS: METOPROLOL TARTRATE 25 MG TABLET (FP) PO SCH (09:56)
[2023-08-28] MEDS: busPIRone HCL 10 MG TABLET (FP) PO SCH (09:56)
[2023-08-28] MEDS: LORazepam 0.5 MG TABLET PO SCH (09:56)
[2023-08-28] MEDS: DULoxetine HCL 30 MG CAPSULE.DR PO SCH (09:56)
[2023-08-28] MEDS: SUCRALFATE 1 GM/10 ML UNIT DOSE CUPS PO SCH (09:56)
[2023-08-28] MEDS ORDERED: ASCORBIC ACID 500 MG TABLET (FP) ONE (09:57)
[2023-08-28] MEDS ORDERED: GABAPENTIN 300 MG CAPSULE ONE (09:57)
[2023-08-28] MEDS: POLYETHYLENE GLYCOL (HEALTHYLAX) 3350 17 GM PACKET PO SCH (09:58)
[2023-08-28] MEDS: ASCORBIC ACID 250 MG TABLET (FP) PO SCH (09:58)
[2023-08-28] MEDS ORDERED: ONDANSETRON *ODT* 4 MG TABLET ONE (10:10)
[2023-08-28] MEDS: ONDANSETRON *ODT* 4 MG TABLET GT PRN (10:14)
[2023-08-28] MEDS: GABAPENTIN 300 MG CAPSULE PO SCH (13:44)
[2023-08-28 15:40] LABS: BF WBC & OTHER NUCLEATED CELLS 1921 /mm3
[2023-08-28] MEDS: PIPERACILLIN/TAZOB 4.5 GM 4.5 GM in DEXTROSE 5%-WATER 100 ML IVPB SCH (15:45)
[2023-08-28 15:57] LABS: BODY FLUID MACROPHAGES 14 %
[2023-08-28] MEDS: MIRTAZAPINE 15 MG TABLET (FP) PO SCH (21:10)
[2023-08-28] MEDS: MELATONIN 5 MG TABLETS PO SCH (21:11)
[2023-08-29] MEDS: PIPERACILLIN/TAZOB 4.5 GM 4.5 GM in DEXTROSE 5%-WATER 100 ML IVPB SCH (03:00)
[2023-08-29] MEDS: VANCOMYCIN/WATER FOR INJ (PEG) 1,000 MG/200 ML BAG IVPB SCH (14:42)
[2023-08-30 11:34] LABS: BASO % 0.6 % (0-2.0); EOS % 0.8 % (0-4.5); HEMATOCRIT 28.5 % (32.4-45.2); HEMOGLOBIN 9.9 GM/dL (10.7-15.3); LYMPH % 10.9 % (8-40); MCH 28.3 pg (25.7-33.7); MCHC 34.6 g/dl (32.0-36.0); MEAN CELL VOLUME 81.8 fl (80-96); MEAN PLT VOLUME 9.2 fl (7.5-11.1); MONO % 9.2 % (3.8-10.2); NEUT % 78.5 % (42.8-82.8); PLATELET COUNT 312 10^3/uL (134-434); RBC 3.49 M/mm3 (3.60-5.2)
[2023-08-30 11:56] LABS: CHLORIDE 102 mmol/L (98-107); SODIUM 138 mmol/L (136-145)
[2023-08-30 11:59] LABS: ALBUMIN 1.4 g/dl (3.4-5.0); BLOOD UREA NITROGEN 4.2 mg/dL (7-18); CALCIUM 7.8 mg/dL (8.5-10.1); CO2 28 mmol/L (21-32); GLUCOSE,RANDOM 87 mg/dL (74-106)
[2023-08-30 12:02] LABS: CREATININE 0.8 mg/dL (0.55-1.3); SGOT/AST 41 U/L (15-37); SGPT/ALT 12 U/L (13-61)
[2023-08-30 12:04] LABS: BILIRUBIN,TOTAL 1.6 mg/dL (0.2-1); TOT PROT 5.8 g/dl (6.4-8.2)
[2023-08-30 12:05] LABS: ALK PHOS 198 U/L (45-117)
[2023-08-30 12:08] LABS: ANION GAP 8 mmol/L (4-13); POTASSIUM 2.8 mmol/L (3.5-5.1)
[2023-08-30] MEDS: POTASSIUM CHLORIDE ORAL LIQUID 20 MEQ/15 ML PO ONE (14:15)
[2023-08-30] MEDS: KCL 10 MEQ IVPB 10 MEQ/100 ML INFUS.BAG IVPB SCH ×2 (14:15→20:56)
[2023-08-31 12:42] LABS: BASO % 0.7 % (0-2.0); EOS % 1.4 % (0-4.5); HEMATOCRIT 27.1 % (32.4-45.2); HEMOGLOBIN 9.2 GM/dL (10.7-15.3); LYMPH % 17.8 % (8-40); MCH 27.9 pg (25.7-33.7); MONO % 10.5 % (3.8-10.2); NEUT % 69.6 % (42.8-82.8); PLATELET COUNT 309 10^3/uL (134-434); RDW 16.6 % (11.6-15.6); WHITE BLOOD COUNT 7.6 K/mm3 (4.0-10.0)
[2023-08-31 13:02] LABS: CHLORIDE 102 mmol/L (98-107); POTASSIUM 3.2 mmol/L (3.5-5.1); SODIUM 139 mmol/L (136-145)
[2023-08-31 13:03] LABS: CALCIUM 8.4 mg/dL (8.5-10.1)
[2023-08-31 13:04] LABS: GLUCOSE,RANDOM 97 mg/dL (74-106); MAGNESIUM 1.5 mg/dL (1.8-2.4)
[2023-08-31 13:06] LABS: ANION GAP 7 mmol/L (4-13); CO2 29 mmol/L (21-32)
[2023-08-31 13:07] LABS: CREATININE 0.7 mg/dL (0.55-1.3)
[2023-08-31 13:08] LABS: BLOOD UREA NITROGEN 1.8 mg/dL (7-18)
[2023-08-31] MEDS: MAGNESIUM 2GM/50ML STERILE WATER IVPB IVPB ONE (14:24)
[2023-08-31] MEDS: POTASSIUM CHLORIDE ORAL LIQUID 20 MEQ/15 ML PO ONE (14:24)
[2023-08-31 15:11] LABS: BODY FLUID ALBUMIN 1.6 g/dL (Not Estab.)
[2023-08-31 23:47] VITALS: BMI 22.1
[2023-09-01] MEDS: DOCUSATE SODIUM 100 MG CAPSULE (FP) PO PRN (09:06)
[2023-09-01] MEDS: MULTIVITAMINS (DAILY MVI) TABLET (FP) PO SCH (09:10)
[2023-09-01] MEDS: ASCORBIC ACID 250 MG TABLET (FP) PO SCH (10:02)
[2023-09-02 09:52] LABS: BASO % 0.5 % (0-2.0); EOS % 2.7 % (0-4.5); HEMATOCRIT 28.5 % (32.4-45.2); HEMOGLOBIN 9.6 GM/dL (10.7-15.3); MCH 28.3 pg (25.7-33.7); MCHC 33.7 g/dl (32.0-36.0); MEAN PLT VOLUME 9.5 fl (7.5-11.1); MONO % 7.7 % (3.8-10.2); NEUT % 73.1 % (42.8-82.8); PLATELET COUNT 371 10^3/uL (134-434); RBC 3.39 M/mm3 (3.60-5.2); RDW 17.3 % (11.6-15.6); WHITE BLOOD COUNT 8.5 K/mm3 (4.0-10.0)
[2023-09-02 10:18] LABS: ALBUMIN 1.4 g/dl (3.4-5.0); ANION GAP 8 mmol/L (4-13); CALCIUM 8.1 mg/dL (8.5-10.1); CHLORIDE 102 mmol/L (98-107); CO2 31 mmol/L (21-32); GLUCOSE,RANDOM 108 mg/dL (74-106); POTASSIUM 3.4 mmol/L (3.5-5.1); SODIUM 141 mmol/L (136-145)
[2023-09-02 10:21] LABS: CREATININE 0.7 mg/dL (0.55-1.3); MAGNESIUM 1.6 mg/dL (1.8-2.4); SGOT/AST 51 U/L (15-37); SGPT/ALT 17 U/L (13-61)
[2023-09-02 10:22] LABS: BILIRUBIN,TOTAL 0.8 mg/dL (0.2-1)
[2023-09-02 10:23] LABS: TOT PROT 6.1 g/dl (6.4-8.2)
[2023-09-02 10:29] LABS: ALK PHOS 242 U/L (45-117); BLOOD UREA NITROGEN 1.7 mg/dL (7-18)
[2023-09-02] MEDS: MAGNESIUM SULF 50% (8.12 MEQ/2 ML-1 GM VIAL) IVPB ONE (14:33)
[2023-09-02] MEDS: POTASSIUM CHLORIDE ORAL LIQUID 20 MEQ/15 ML PO ONE (14:35)
[2023-09-03] MEDS: LIDOCAINE HCL 1% PRESERVATIVE FREE - 30ML VIAL NR ONE (11:39)
[2023-09-04 09:57] LABS: HEMATOCRIT 30.6 % (32.4-45.2); MCH 27.8 pg (25.7-33.7); MCHC 32.8 g/dl (32.0-36.0); MEAN CELL VOLUME 84.6 fl (80-96); MEAN PLT VOLUME 9.2 fl (7.5-11.1); PLATELET COUNT 430 10^3/uL (134-434); RBC 3.62 M/mm3 (3.60-5.2); RDW 18.1 % (11.6-15.6); WHITE BLOOD COUNT 8.9 K/mm3 (4.0-10.0)
[2023-09-04 10:16] LABS: CHLORIDE 102 mmol/L (98-107); SODIUM 140 mmol/L (136-145)
[2023-09-04 10:20] LABS: CALCIUM 8.2 mg/dL (8.5-10.1)
[2023-09-04 10:21] LABS: ALBUMIN 1.3 g/dl (3.4-5.0); CO2 31 mmol/L (21-32); MAGNESIUM 1.4 mg/dL (1.8-2.4)
[2023-09-04 10:24] LABS: CREATININE 0.5 mg/dL (0.55-1.3); SGOT/AST 213 U/L (15-37); SGPT/ALT 50 U/L (13-61)
[2023-09-04 10:26] LABS: TOT PROT 5.8 g/dl (6.4-8.2)
[2023-09-04] MEDS: LIDOCAINE HCL 1%, 10 MG/ML (20ML VIAL) NR ONE (10:30)
[2023-09-04 10:32] LABS: ALK PHOS 282 U/L (45-117); ANION GAP 7 mmol/L (4-13); GLUCOSE,RANDOM 90 mg/dL (74-106); POTASSIUM 2.9 mmol/L (3.5-5.1)
[2023-09-04] MEDS: ALBUTEROL SO4 2.5/IPRATROPIUM 0.5 INH SOL 3 ML VIAL.NEB. NEB SCH (12:05)
[2023-09-04] MEDS: ONDANSETRON 4 MG/2 ML VIAL IVPUSH PRN (14:50)
[2023-09-04] MEDS: MAGNESIUM SULFATE IN WATER 2 GM/50 ML IVPB IVPB ONE ×2 (17:50→18:14)
[2023-09-04] MEDS: POTASSIUM CHLORIDE TABS 20 MEQ TABLET.ER (FP) PO SCH (18:14)
[2023-09-04] MEDS: KCL 10 MEQ IVPB 10 MEQ/100 ML INFUS.BAG IVPB SCH (19:26)
[2023-09-06 08:49] LABS: BASO % 0.5 % (0-2.0); EOS % 1.5 % (0-4.5); HEMATOCRIT 30.5 % (32.4-45.2); HEMOGLOBIN 10.2 GM/dL (10.7-15.3); LYMPH % 12.5 % (8-40); MCHC 33.3 g/dl (32.0-36.0); MEAN PLT VOLUME 9.6 fl (7.5-11.1); MONO % 7.9 % (3.8-10.2); NEUT % 77.6 % (42.8-82.8); PLATELET COUNT 493 10^3/uL (134-434); RBC 3.63 M/mm3 (3.60-5.2); RDW 18.4 % (11.6-15.6); WHITE BLOOD COUNT 14.2 K/mm3 (4.0-10.0)
[2023-09-06 09:01] LABS: CHLORIDE 98 mmol/L (98-107); SODIUM 136 mmol/L (136-145)
[2023-09-06 09:03] LABS: ALBUMIN 1.2 g/dl (3.4-5.0); CALCIUM 7.9 mg/dL (8.5-10.1)
[2023-09-06 09:04] LABS: CO2 31 mmol/L (21-32); GLUCOSE,RANDOM 91 mg/dL (74-106)
[2023-09-06 09:07] LABS: SGOT/AST 194 U/L (15-37); SGPT/ALT 50 U/L (13-61)
[2023-09-06 09:08] LABS: CREATININE 0.5 mg/dL (0.55-1.3); TOT PROT 5.7 g/dl (6.4-8.2)
[2023-09-06 09:10] LABS: BILIRUBIN,TOTAL 1.5 mg/dL (0.2-1)
[2023-09-06 09:11] LABS: ALK PHOS 409 U/L (45-117); ANION GAP 8 mmol/L (4-13); BLOOD UREA NITROGEN 1.6 mg/dL (7-18); POTASSIUM 2.9 mmol/L (3.5-5.1)
[2023-09-06] MEDS: KCL 10 MEQ IVPB 10 MEQ/100 ML INFUS.BAG IVPB SCH (11:13)
[2023-09-06] MEDS ORDERED: ALBUTEROL SO4 2.5/IPRATROPIUM 0.5 INH SOL 3 ML VIAL.NEB. NEB PRN (14:15)
[2023-09-07 09:20] LABS: BASO % 1.5 % (0-2.0); EOS % 2.5 % (0-4.5); HEMATOCRIT 33.5 % (32.4-45.2); HEMOGLOBIN 11.1 GM/dL (10.7-15.3); LYMPH % 18.1 % (8-40); MCH 28.4 pg (25.7-33.7); MEAN CELL VOLUME 86.1 fl (80-96); MEAN PLT VOLUME 9.5 fl (7.5-11.1); MONO % 6.9 % (3.8-10.2); PLATELET COUNT 397 10^3/uL (134-434); RBC 3.89 M/mm3 (3.60-5.2); RDW 19.8 % (11.6-15.6); WHITE BLOOD COUNT 11.4 K/mm3 (4.0-10.0)
[2023-09-07 09:43] LABS: CHLORIDE 103 mmol/L (98-107); SODIUM 139 mmol/L (136-145)
[2023-09-07 09:47] LABS: CALCIUM 7.4 mg/dL (8.5-10.1)
[2023-09-07 09:48] LABS: ALBUMIN 1.2 g/dl (3.4-5.0); ANION GAP 8 mmol/L (4-13); BLOOD UREA NITROGEN < 1.0 mg/dL (7-18); CO2 28 mmol/L (21-32); GLUCOSE,RANDOM 90 mg/dL (74-106)
[2023-09-07 09:51] LABS: CREATININE 0.6 mg/dL (0.55-1.3); SGOT/AST 126 U/L (15-37); SGPT/ALT 42 U/L (13-61)
[2023-09-07 09:53] LABS: BILIRUBIN,TOTAL 1.2 mg/dL (0.2-1); TOT PROT 5.6 g/dl (6.4-8.2)
[2023-09-07 09:54] LABS: ALK PHOS 391 U/L (45-117)
[2023-09-07] MEDS: KCL 10 MEQ IVPB 10 MEQ/100 ML INFUS.BAG IVPB SCH (11:27)
[2023-09-07] MEDS: POTASSIUM CHLORIDE ORAL LIQUID 20 MEQ/15 ML PO ONE (13:38)
[2023-09-08 10:38] LABS: CHLORIDE 105 mmol/L (98-107); POTASSIUM 3.8 mmol/L (3.5-5.1); SODIUM 140 mmol/L (136-145)
[2023-09-08 10:41] LABS: CALCIUM 8.1 mg/dL (8.5-10.1)
[2023-09-08 10:42] LABS: ALBUMIN 1.1 g/dl (3.4-5.0); ANION GAP 6 mmol/L (4-13); CO2 28 mmol/L (21-32); GLUCOSE,RANDOM 90 mg/dL (74-106); MAGNESIUM 1.6 mg/dL (1.8-2.4)
[2023-09-08 10:45] LABS: CREATININE 0.5 mg/dL (0.55-1.3); SGOT/AST 65 U/L (15-37); SGPT/ALT 33 U/L (13-61)
[2023-09-08 10:46] LABS: BILIRUBIN,TOTAL 0.9 mg/dL (0.2-1)
[2023-09-08 10:47] LABS: TOT PROT 5.4 g/dl (6.4-8.2)
[2023-09-08 10:48] LABS: ALK PHOS 381 U/L (45-117)
[2023-09-08 11:07] LABS: BLOOD UREA NITROGEN 1.7 mg/dL (7-18)
[2023-09-08] MEDS: PIPERACILLIN/TAZOB 4.5 GM 4.5 GM in DEXTROSE 5%-WATER 100 ML IVPB SCH (18:11)
[2023-09-09] MEDS: LACTOBACILLUS ACIDOPHILUS 1 TABLET PO SCH (12:15)
[2023-09-10 05:16] VITALS: PULSE 82
[2023-09-10 11:21] VITALS: BP 111/63; RESP 20; TEMP 97.7
== END 2023-09-10 12:50 | DRG 871 ==
LOC: JER 11:32 → JERBED 18:12 → J6S 08-28 14:52
PROVIDERS: ADMIT Internal Medicine; ATTEND Internal Medicine
PROC: 0W9B3ZZ Drainage of Left Pleural Cavity, Percutaneous Approach (ICD-10-PCS; principal; 2023-08-28)
PROC: 05HY33Z Insertion of Infusion Device into Upper Vein, Percutaneous Approach (ICD-10-PCS; 2023-09-10)
DX: A41.9 Sepsis, unspecified organism (principal); E43 Unspecified severe protein-calorie malnutrition; J18.9 Pneumonia, unspecified organism; J86.9 Pyothorax without fistula; J44.0 Chronic obstructive pulmonary disease with (acute) lower respiratory infection; J90 Pleural effusion, not elsewhere classified; K50.90 Crohn's disease, unspecified, without complications; R64 Cachexia; E83.42 Hypomagnesemia; J45.909 Unspecified asthma, uncomplicated; K21.9 Gastro-esophageal reflux disease without esophagitis; I10 Essential (primary) hypertension; E87.6 Hypokalemia; Z68.22 Body mass index [BMI] 22.0-22.9, adult
CPT/HCPCS: 0241U-QW; 32552; 32557; 36415; 36569; 71045-TC-FY; 71250-TC; 71260-TC; 74177-TC; 76705-TC; 76942; 80048; 80053; 81003; 82042; 82150; 82465; 82945; 83615; 83735; 83986; 84100; 84157; 84478; 84484; 85025; 85027; 85610; 85730; 87040; 87070; 87075; 87081; 87086; 87102; 87116; 87205; 87206; 87210; 88108; 88305-TC; 93005; 93010; 94640; 99285-25; J2997; Q0162; Q9967

== ENCOUNTER 2023-10-04 01:02 | Inpatient (IN) | payer OTHER ==
[2023-10-04] MEDS ORDERED: MAGNESIUM SULFATE IN WATER 2 GM/50 ML IVPB IVPB ONE (01:21)
[2023-10-04] MEDS ORDERED: DEXAMETHASONE SOD PHOSPHATE 10 MG/1 ML VIAL ONE (01:21)
[2023-10-04] MEDS ORDERED: TERBUTALINE SULFATE 1 MG/1 ML VIAL SQ ONE (01:21)
[2023-10-04] MEDS: TERBUTALINE SULFATE 1 MG/1 ML VIAL SQ ONE (01:25)
[2023-10-04 01:41] LABS: VENOUS BASE EXCESS -0.2 mmol/L (-2-2); VENOUS O2 SATURATION 51.6 % (70-80); VENOUS PCO2 45.9 mmHg (38-52); VENOUS PH 7.363 (7.310-7.410)
[2023-10-04 01:42] LABS: HEMATOCRIT 34.4 % (32.4-45.2); HEMOGLOBIN 11.2 GM/dL (10.7-15.3); MCH 29.1 pg (25.7-33.7); MCHC 32.5 g/dl (32.0-36.0); MEAN CELL VOLUME 89.6 fl (80-96); MEAN PLT VOLUME 10.9 fl (7.5-11.1); PLATELET COUNT 232 10^3/uL (134-434); RBC 3.85 M/mm3 (3.60-5.2); RDW 16.8 % (11.6-15.6); WHITE BLOOD COUNT 22.8 K/mm3 (4.0-10.0)
[2023-10-04] MEDS: DEXAMETHASONE SOD PHOSPHATE 10 MG/1 ML VIAL IVPUSH ONE (01:50)
[2023-10-04 01:51] LABS: INR 1.66 (0.83-1.09); PROTHROMBIN TIME (PATIENT) 19.2 SEC (9.7-13.0)
[2023-10-04] MEDS: MAGNESIUM SULF 50% (8.12 MEQ/2 ML-1 GM VIAL) IVPB ONE ×3 (01:51→03:52)
[2023-10-04] MEDS ORDERED: ONDANSETRON 4 MG/2 ML VIAL ONE (01:52)
[2023-10-04] MEDS ORDERED: ASPIRIN 81 MG CHEWABLE TABLETS ONE (01:52)
[2023-10-04 01:54] LABS: ACTIVATED PTT 31.5 SECONDS (25.2-36.5)
[2023-10-04 01:55] LABS: CHLORIDE 102 mmol/L (98-107); POTASSIUM 3.6 mmol/L (3.5-5.1); SODIUM 138 mmol/L (136-145)
[2023-10-04 01:57] LABS: ALBUMIN 1.2 g/dl (3.4-5.0); ANION GAP 8 mmol/L (4-13); CALCIUM 7.3 mg/dL (8.5-10.1); CO2 28 mmol/L (21-32); GLUCOSE,RANDOM 103 mg/dL (74-106); MAGNESIUM 1.1 mg/dL (1.8-2.4)
[2023-10-04 02:01] LABS: SGOT/AST 92 U/L (15-37); SGPT/ALT 28 U/L (13-61)
[2023-10-04 02:02] LABS: BILIRUBIN,TOTAL 2.8 mg/dL (0.2-1); CREATININE 0.6 mg/dL (0.55-1.3)
[2023-10-04 02:03] LABS: ALK PHOS 446 U/L (45-117)
[2023-10-04] MEDS: ONDANSETRON 4 MG/2 ML VIAL IVPUSH ONE (02:04)
[2023-10-04 02:05] LABS: N-TERMINAL BNP 1070.1 pg/ml (5-125)
[2023-10-04] MEDS: ALBUTEROL SO4 2.5/IPRATROPIUM 0.5 INH SOL 3 ML VIAL.NEB. NEB SCH (02:05)
[2023-10-04] MEDS ORDERED: CALCIUM GLUCONATE 10% - 1,000 MG/10 ML VIAL ONE (02:36)
[2023-10-04] MEDS ORDERED: CALCIUM GLUC IN NACL, ISO-OSM 1 GM/50 ML BAG IVPB ONE (02:37)
[2023-10-04] MEDS: CALCIUM GLUCONATE 10% - 1,000 MG/10 ML VIAL IVPB ONE (02:46)
[2023-10-04] MEDS: ASPIRIN 81 MG CHEWABLE TABLETS PO ONE (03:09)
[2023-10-04 03:10] LABS: CHLORIDE 102 mmol/L (98-107); POTASSIUM 3.1 mmol/L (3.5-5.1); SODIUM 137 mmol/L (136-145)
[2023-10-04 03:11] LABS: CALCIUM 7.4 mg/dL (8.5-10.1)
[2023-10-04 03:12] LABS: ANION GAP 11 mmol/L (4-13); CO2 24 mmol/L (21-32); GLUCOSE,RANDOM 121 mg/dL (74-106); MAGNESIUM 2.1 mg/dL (1.8-2.4)
[2023-10-04 03:15] LABS: CREATININE 0.7 mg/dL (0.55-1.3); PHOSPHOROUS 2.1 mg/dL (2.5-4.9)
[2023-10-04] MEDS ORDERED: IPRATROPIUM BR 0.02% 0.5 MG/2.5 ML VIAL.NEB. NEB ONE ×2 (03:20→03:49)
[2023-10-04] MEDS: IPRATROPIUM BR 0.02% 0.5 MG/2.5 ML VIAL.NEB. NEB ONE (03:28)
[2023-10-04 03:35] LABS: BLOOD UREA NITROGEN 1.3 mg/dL (7-18)
[2023-10-04] MEDS ORDERED: MAGNESIUM 1GM/D5W - 1 GM/100 ML IVPB IVPB ONE (03:40)
[2023-10-04] MEDS ORDERED: KCL 10 MEQ IVPB 10 MEQ/100 ML INFUS.BAG IVPB ONE (03:40)
[2023-10-04] MEDS: KCL 10 MEQ IVPB 10 MEQ/100 ML INFUS.BAG IVPB SCH (04:09)
[2023-10-04] MEDS ORDERED: DOCUSATE SODIUM 100 MG CAPSULE (FP) PO PRN (06:45)
[2023-10-04] MEDS ORDERED: METOPROLOL TARTRATE 25 MG TABLET (FP) ONE ×2 (09:32→23:59)
[2023-10-04] MEDS ORDERED: ASCORBIC ACID 250 MG TABLET (FP) ONE (09:33)
[2023-10-04] MEDS ORDERED: GABAPENTIN 300 MG CAPSULE ONE (09:33)
[2023-10-04] MEDS ORDERED: MULTIVITAMINS (DAILY MVI) TABLET (FP) ONE (09:33)
[2023-10-04] MEDS ORDERED: DULoxetine HCL 30 MG CAPSULE.DR PO ONE (09:33)
[2023-10-04] MEDS ORDERED: methylPREDNISolone NA SUCC 40 MG/1 ML VIAL ONE (09:35)
[2023-10-04] MEDS: METOPROLOL TARTRATE 25 MG TABLET (FP) PO SCH (09:46)
[2023-10-04] MEDS: UMECLIDINIUM/VILANTEROL (ANORO) 62.5/25 MCG INHALER IH SCH (09:46)
[2023-10-04] MEDS: GABAPENTIN 300 MG CAPSULE PO SCH (09:46)
[2023-10-04] MEDS: DULoxetine HCL 30 MG CAPSULE.DR PO SCH (09:46)
[2023-10-04] MEDS: LACTOBACILLUS ACIDOPHILUS 1 TABLET PO SCH (09:46)
[2023-10-04] MEDS: methylPREDNISolone NA SUCC 40 MG/1 ML VIAL IVPUSH SCH (09:47)
[2023-10-04] MEDS: ASCORBIC ACID 250 MG TABLET (FP) PO SCH (09:47)
[2023-10-04] MEDS: PANTOPRAZOLE 40 MG TABLET PO SCH (09:47)
[2023-10-04] MEDS: MULTIVITAMINS (DAILY MVI) TABLET (FP) PO SCH (09:47)
[2023-10-04 09:49] LABS: ANISOCYTOSIS 0; HELMET CELLS 0; HOWELL-JOLLY BODIES 0; MACROCYTOSIS 0; OVALOCYTE 0; ROULEAU 0; SICKELED CELLS 0; TARGET CELLS 0; TEAR DROP CELLS 0; TOXIC GRANULATION 0
[2023-10-04] MEDS: SUCRALFATE 1 GM/10 ML UNIT DOSE CUPS PO SCH (12:41)
[2023-10-04] MEDS: busPIRone HCL 10 MG TABLET (FP) PO SCH (14:27)
[2023-10-04] MEDS ORDERED: PIPERACILLIN/TAZOB 3.375 GM 3.375 GM/50 ML BAG IVPB ONE (18:05)
[2023-10-04] MEDS: PIPERACILLIN/TAZOB 3.375 GM 3.375 GM in DEXTROSE 5%-WATER - 50 ML IVPB SCH (18:12)
[2023-10-04] MEDS ORDERED: MELATONIN 5 MG TABLETS ONE (23:59)
[2023-10-04] MEDS ORDERED: busPIRone HCL 5 MG TABLET ONE (23:59)
[2023-10-05] MEDS ORDERED: MIRTAZAPINE 15 MG TABLET (FP) ONE
[2023-10-05] MEDS ORDERED: GABAPENTIN 300 MG CAPSULE ONE ×3 (00:01→07:05)
[2023-10-05] MEDS: MELATONIN 5 MG TABLETS PO SCH (00:07)
[2023-10-05] MEDS: MIRTAZAPINE 15 MG TABLET (FP) PO SCH (00:07)
[2023-10-05] MEDS ORDERED: methylPREDNISolone NA SUCC 40 MG/1 ML VIAL ONE ×2 (04:00→11:21)
[2023-10-05] MEDS ORDERED: PIPERACILLIN/TAZOB 3.375 GM 3.375 GM/50 ML BAG IVPB ONE ×2 (04:00→11:22)
[2023-10-05] MEDS ORDERED: busPIRone HCL 5 MG TABLET ONE (07:05)
[2023-10-05 10:18] LABS: BASO % 0.1 % (0-2.0); EOS % 0.1 % (0-4.5); HEMATOCRIT 31.2 % (32.4-45.2); HEMOGLOBIN 10.1 GM/dL (10.7-15.3); LYMPH % 8.7 % (8-40); MCH 29.2 pg (25.7-33.7); MCHC 32.4 g/dl (32.0-36.0); MEAN CELL VOLUME 90.1 fl (80-96); MEAN PLT VOLUME 9.9 fl (7.5-11.1); MONO % 3.3 % (3.8-10.2); NEUT % 87.8 % (42.8-82.8); PLATELET COUNT 203 10^3/uL (134-434); RBC 3.47 M/mm3 (3.60-5.2); RDW 16.7 % (11.6-15.6); WHITE BLOOD COUNT 13.6 K/mm3 (4.0-10.0)
[2023-10-05 10:26] LABS: INR 1.51 (0.83-1.09); PROTHROMBIN TIME (PATIENT) 17.4 SEC (9.7-13.0)
[2023-10-05 10:28] LABS: ACTIVATED PTT 33.8 SECONDS (25.2-36.5)
[2023-10-05 10:39] LABS: POTASSIUM 3.8 mmol/L (3.5-5.1)
[2023-10-05 10:44] LABS: ALBUMIN 1.2 g/dl (3.4-5.0); BLOOD UREA NITROGEN 3.6 mg/dL (7-18)
[2023-10-05 10:47] LABS: CREATININE 0.5 mg/dL (0.55-1.3)
[2023-10-05 10:48] LABS: BILIRUBIN,TOTAL 1.6 mg/dL (0.2-1); TOT PROT 5.9 g/dl (6.4-8.2)
[2023-10-05] MEDS ORDERED: ASCORBIC ACID 250 MG TABLET (FP) ONE (11:20)
[2023-10-05] MEDS ORDERED: PANTOPRAZOLE 40 MG TABLET PO ONE (11:20)
[2023-10-05] MEDS ORDERED: ENOXAPARIN NA (PORCINE) 40 MG/0.4 ML DISP.SYRIN SQ ONE (11:21)
[2023-10-05] MEDS ORDERED: DULoxetine HCL 30 MG CAPSULE.DR PO ONE (11:21)
[2023-10-05] MEDS ORDERED: MULTIVITAMINS (DAILY MVI) TABLET (FP) ONE ×2 (11:21→11:23)
[2023-10-05] MEDS ORDERED: METOPROLOL TARTRATE 25 MG TABLET (FP) ONE (12:00)
[2023-10-05] MEDS: ENOXAPARIN NA (PORCINE) 40 MG/0.4 ML DISP.SYRIN SQ SCH (12:35)
[2023-10-05] MEDS: ALBUTEROL SO4 0.083% IH SOL 2.5 MG/3 ML VIAL.NEB. NEB SCH (15:40)
[2023-10-06 10:56] LABS: BILIRUBIN,DIRECT 1.4 mg/dL (0.0-0.2)
[2023-10-06] MEDS: AMINO ACIDS/PROTEIN HYDROLYS 30 ML LIQUID.PKT PO SCH (16:57)
[2023-10-06] MEDS: POLYETHYLENE GLYCOL (HEALTHYLAX) 3350 17 GM PACKET PO SCH (22:04)
[2023-10-07 08:19] LABS: BASO % 0.7 % (0-2.0); HEMATOCRIT 29.8 % (32.4-45.2); HEMOGLOBIN 9.5 GM/dL (10.7-15.3); LYMPH % 11.9 % (8-40); MCH 28.9 pg (25.7-33.7); MCHC 31.8 g/dl (32.0-36.0); MEAN PLT VOLUME 9.6 fl (7.5-11.1); MONO % 4.5 % (3.8-10.2); NEUT % 82.9 % (42.8-82.8); PLATELET COUNT 287 10^3/uL (134-434); RBC 3.27 M/mm3 (3.60-5.2); RDW 17.1 % (11.6-15.6); WHITE BLOOD COUNT 7.1 K/mm3 (4.0-10.0)
[2023-10-07 08:28] LABS: POTASSIUM 3.7 mmol/L (3.5-5.1)
[2023-10-07 08:30] LABS: CALCIUM 7.6 mg/dL (8.5-10.1)
[2023-10-07 08:31] LABS: ALBUMIN 1.2 g/dl (3.4-5.0); BLOOD UREA NITROGEN 8.1 mg/dL (7-18)
[2023-10-07 08:34] LABS: CREATININE 0.6 mg/dL (0.55-1.3)
[2023-10-07 08:35] LABS: TOT PROT 5.6 g/dl (6.4-8.2)
[2023-10-08 07:50] LABS: BASO % 0.2 % (0-2.0); EOS % 0.1 % (0-4.5); HEMATOCRIT 27.7 % (32.4-45.2); HEMOGLOBIN 9.2 GM/dL (10.7-15.3); LYMPH % 12.7 % (8-40); MCH 29.7 pg (25.7-33.7); MCHC 33.2 g/dl (32.0-36.0); MEAN CELL VOLUME 89.4 fl (80-96); MONO % 4.5 % (3.8-10.2); NEUT % 82.5 % (42.8-82.8); PLATELET COUNT 261 10^3/uL (134-434); RDW 16.8 % (11.6-15.6); WHITE BLOOD COUNT 5.8 K/mm3 (4.0-10.0)
[2023-10-08 08:23] LABS: POTASSIUM 3.6 mmol/L (3.5-5.1)
[2023-10-08 08:25] LABS: CALCIUM 7.7 mg/dL (8.5-10.1)
[2023-10-08 08:26] LABS: ALBUMIN 1.2 g/dl (3.4-5.0)
[2023-10-08 08:29] LABS: CREATININE 0.6 mg/dL (0.55-1.3)
[2023-10-08 08:30] LABS: BILIRUBIN,TOTAL 0.8 mg/dL (0.2-1); TOT PROT 5.3 g/dl (6.4-8.2)
[2023-10-08] MEDS ORDERED: morphine SULFATE 10 MG/5 ML UNIT-DOSE CUP PO PRN (11:48)
[2023-10-09] MEDS: methylPREDNISolone NA SUCC 40 MG/1 ML VIAL IVPUSH SCH (10:14)
[2023-10-09 16:43] VITALS: BMI 23.9
[2023-10-09] MEDS: ONDANSETRON 4 MG/2 ML VIAL IVPUSH PRN (17:23)
[2023-10-11 10:26] LABS: ALBUMIN 1.1 g/dl (3.4-5.0); BILIRUBIN,TOTAL 0.7 mg/dL (0.2-1); BLOOD UREA NITROGEN 6.6 mg/dL (7-18); CALCIUM 7.2 mg/dL (8.5-10.1); CHLORIDE 103 mmol/L (98-107); CO2 30 mmol/L (21-32); CREATININE 0.5 mg/dL (0.55-1.3); GLUCOSE,RANDOM 58 mg/dL (74-106); SGOT/AST 60 U/L (15-37); SGPT/ALT 49 U/L (13-61); SODIUM 142 mmol/L (136-145); TOT PROT 5.1 g/dl (6.4-8.2)
[2023-10-11 10:51] LABS: BASO % 0.6 % (0-2.0); EOS % 3.7 % (0-4.5); HEMATOCRIT 33.5 % (32.4-45.2); LYMPH % 19.1 % (8-40); MCH 29.9 pg (25.7-33.7); MCHC 32.9 g/dl (32.0-36.0); MEAN CELL VOLUME 90.8 fl (80-96); MEAN PLT VOLUME 8.2 fl (7.5-11.1); MONO % 3.8 % (3.8-10.2); NEUT % 72.8 % (42.8-82.8); PLATELET COUNT 392 10^3/uL (134-434); RBC 3.69 M/mm3 (3.60-5.2); RDW 18.2 % (11.6-15.6); WHITE BLOOD COUNT 9.3 K/mm3 (4.0-10.0)
[2023-10-11 11:01] LABS: ALK PHOS 383 U/L (45-117); ANION GAP 9 mmol/L (4-13); POTASSIUM 2.9 mmol/L (3.5-5.1)
[2023-10-11] MEDS: KCL 10 MEQ IVPB 10 MEQ/100 ML INFUS.BAG IVPB SCH (17:29)
[2023-10-12 07:44] LABS: HEMATOCRIT 29.5 % (32.4-45.2); HEMOGLOBIN 9.8 GM/dL (10.7-15.3); MCH 30.1 pg (25.7-33.7); MCHC 33.2 g/dl (32.0-36.0); MEAN CELL VOLUME 90.6 fl (80-96); MEAN PLT VOLUME 8.2 fl (7.5-11.1); PLATELET COUNT 353 10^3/uL (134-434); RBC 3.26 M/mm3 (3.60-5.2); RDW 18.7 % (11.6-15.6); WHITE BLOOD COUNT 5.3 K/mm3 (4.0-10.0)
[2023-10-12 07:48] LABS: POTASSIUM 3.3 mmol/L (3.5-5.1)
[2023-10-12 07:50] LABS: CALCIUM 7.2 mg/dL (8.5-10.1)
[2023-10-12 07:51] LABS: ALBUMIN 1.2 g/dl (3.4-5.0)
[2023-10-12 07:53] LABS: BLOOD UREA NITROGEN 5.1 mg/dL (7-18)
[2023-10-12 07:56] LABS: BILIRUBIN,TOTAL 0.7 mg/dL (0.2-1); CREATININE 0.5 mg/dL (0.55-1.3)
[2023-10-12 10:10] LABS: ANISOCYTOSIS 0; MACROCYTOSIS 0; TARGET CELLS 1+
[2023-10-12] MEDS: POTASSIUM CHLORIDE ORAL LIQUID 20 MEQ/15 ML PO ONE (10:44)
[2023-10-12] MEDS: predniSONE 20 MG TABLET (UD) PO SCH (10:44)
[2023-10-12 19:19] VITALS: RESP 18
[2023-10-12 19:35] VITALS: BP 124/86; PULSE 75; TEMP 97.5
== END 2023-10-12 07:00 | DRG 193 ==
LOC: JER 01:02 → JERBED 03:51 → J4W 10-05 12:44
PROVIDERS: ADMIT Internal Medicine; ATTEND Internal Medicine
DX: J18.9 Pneumonia, unspecified organism (principal); J96.01 Acute respiratory failure with hypoxia; J44.0 Chronic obstructive pulmonary disease with (acute) lower respiratory infection; J45.901 Unspecified asthma with (acute) exacerbation; J44.1 Chronic obstructive pulmonary disease with (acute) exacerbation; E44.0 Moderate protein-calorie malnutrition; I10 Essential (primary) hypertension; E77.8 Other disorders of glycoprotein metabolism; E83.42 Hypomagnesemia; E87.6 Hypokalemia; R79.89 Other specified abnormal findings of blood chemistry; K21.9 Gastro-esophageal reflux disease without esophagitis
CPT/HCPCS: 0241U-QW; 36415; 71045-TC-FY; 71275-TC; 74181-TC; 76700-TC; 80048; 80053; 82248; 82550; 82728; 82803; 82962; 82977; 83516; 83540; 83550; 83735; 83880; 84100; 84484; 85025; 85379; 85610; 85730; 86038; 86704; 86803; 87340; 87517; 87635; 93005; 93010; 93970-TC; 93971; 94640; 99285-25; J1100; Q9967